=== PATIENT | female | born 1990 | race American Indian/Alaskan Native ===

== ENCOUNTER 2020-09-16 01:08 | Emergency (ER) | payer SELFPAY ==
[~2020-09-16] VITALS: Ht 157.5 cm; Wt 77.1 kg
[2020-09-16] MEDS ORDERED: IBUP600 PO (04:10)
[2020-09-16] MEDS ORDERED: Roxicodone5 MG PO (04:10)
== END 2020-09-16 04:39 | disposition home or self-care (01) ==
LOC: ER 01:08
DX: S82.892A Other fracture of left lower leg, initial encounter for closed fracture (principal); F17.210 Nicotine dependence, cigarettes, uncomplicated; X50.1XXA Overexertion from prolonged static or awkward postures, initial encounter
CPT/HCPCS: 29515; 73502; 73610; 99283-25; A9270

== ENCOUNTER 2020-12-24 13:18 | Day surgery (SDC) | payer OTHER ==
[~2020-12-24] VITALS: Ht 154.9 cm; Wt 84.5 kg
[~2020-12-24 13:18] MED LIST: IBUP600 PO; Roxicodone5 MG PO
== END 2020-12-24 17:10 | disposition home or self-care (01) ==
LOC: ORSCSDS 13:18
PROVIDERS: Podiatrist Foot & Ankle Surgery
PROC: 0QSH04Z Reposition Left Tibia with Internal Fixation Device, Open Approach (ICD-10-PCS; principal; 2020-12-24 14:45)
DX: S82.52XA Displaced fracture of medial malleolus of left tibia, initial encounter for closed fracture (principal); E66.9 Obesity, unspecified; Z68.35 Body mass index [BMI] 35.0-35.9, adult; F17.210 Nicotine dependence, cigarettes, uncomplicated
CPT/HCPCS: A9270; C1713; C1769; J0171; J0690; J2250; J2704; J3010; J7120

== ENCOUNTER 2022-08-25 18:30 | Emergency (ER) | payer OTHER ==
[~2022-08-25] VITALS: Ht 157.5 cm; Wt 83.9 kg
[2022-08-25 19:38] LABS: Source, Urine Clean Catch
[2022-08-25 20:14] LABS: Appearance, Urine Cloudy (Clear); Bilirubin, Urine Neg (Neg); Blood, Urine 4+ (Neg); Color, Urine Yellow (P-Yellow); Glucose Qualitative, Urine 1+ (Neg); Ketones, Urine 1+ (Neg); Leukocyte Esterase, Urine 3+ (Neg); Nitrite, Urine Pos (Neg); Protein, Urine 3+ (Neg); Urobilinogen, Urine NORM (Normal)
[2022-08-25 20:59] LABS: BASOPHILS ABSOLUTE AUTO 0.03 K/mm3 (0.00-0.23); BASOPHILS PERCENT AUTO 0 % (0-2); EOSINOPHILS PERCENT AUTO 0 % (0-6); Hematocrit 37.6 % (33.0-51.0); Hemoglobin 13.1 g/dL (11.5-16.0); IMMATURE GRAN ABSOLUTE AUTO 0.07 K/mm3 (0.00-0.10); IMMATURE GRAN PERCENT AUTO 0 % (0-1); LYMPHOCYTES ABSOLUTE AUTO 1.33 K/mm3 (0.84-5.20); LYMPHOCYTES PERCENT AUTO 7 % (21-46); MONOCYTES ABSOLUTE AUTO 1.71 K/mm3 (0.16-1.47); MONOCYTES PERCENT AUTO 8 % (4-13); Mean Corpuscular HGB 30.7 pg (26.0-34.0); Mean Corpuscular HGB Conc 34.8 g/dL (31.5-36.5); Mean Corpuscular Volume 88 fL (80-100); Mean Platelet Volume 9.8 fL (9.1-12.4); NEUTROPHILS ABSOLUTE AUTO 17.37 K/mm3 (1.96-9.15); NEUTROPHILS PERCENT AUTO 85 % (41-73); Platelet Count 234 K/mm3 (150-400); RDW Coefficient Variation 12.9 % (11.7-14.2); RDW Standard Deviation 41.7 fL (35.1-46.3); Red Blood Cell Count 4.27 M/mm3 (3.80-5.20); White Blood Cell Count 20.51 K/mm3 (4.00-11.30)
[2022-08-25 20:59] LABS: Bacteria Many /hpf; Squamous Epithelial Cells Mod /hpf (Few); White Blood Cells, Urine 50-100 /hpf (0-5)
[2022-08-25 21:15] LABS: Albumin/Globulin Ratio 0.7 (0.8-1.8); Bilirubin, Total 0.8 mg/dL (0.1-1.0); Bun/Creatinine Ratio 11.5 (12.0-20.0); Calcium, Blood 8.1 mg/dL (8.5-10.1); Creatinine, Blood 0.61 mg/dL (0.40-1.00); Globulin, Blood 4.1 g/dL (2.2-4.0); Total Protein, Blood 7.1 g/dL (6.4-8.2)
[2022-08-25 22:33] VITALS: BP 129/62
[2022-08-25] MEDS ORDERED: ONDA4ODT MM ×2 (22:59)
[2022-08-25] MEDS ORDERED: CEFP200 PO ×2 (22:59)
== END 2022-08-25 23:10 | disposition home or self-care (01) ==
LOC: ER 18:30
PROVIDERS: Student in an Organized Health Care Education/Training Program
DX: N12 Tubulo-interstitial nephritis, not specified as acute or chronic (principal); D72.829 Elevated white blood cell count, unspecified; F17.210 Nicotine dependence, cigarettes, uncomplicated
CPT/HCPCS: 80053; 81001; 83605; 83690; 85025; 87077; 87086; 87186; 96361; 96365; 96375; 99284-25; A9270; J0696; J1885; J7030

== ENCOUNTER 2022-08-29 12:48 | Inpatient (IN) | payer OTHER ==
[~2022-08-29 12:48] MED LIST changes: +CEFP200 PO; +ONDA4ODT MM
[2022-08-29 13:20] LABS: BASOPHILS ABSOLUTE AUTO 0.05 K/mm3 (0.00-0.23); BASOPHILS PERCENT AUTO 1 % (0-2); EOSINOPHILS ABSOLUTE AUTO 0.16 K/mm3 (0.00-0.68); EOSINOPHILS PERCENT AUTO 2 % (0-6); Hematocrit 37.5 % (33.0-51.0); IMMATURE GRAN ABSOLUTE AUTO 0.06 K/mm3 (0.00-0.10); IMMATURE GRAN PERCENT AUTO 1 % (0-1); LYMPHOCYTES ABSOLUTE AUTO 2.36 K/mm3 (0.84-5.20); LYMPHOCYTES PERCENT AUTO 26 % (21-46); MONOCYTES ABSOLUTE AUTO 0.87 K/mm3 (0.16-1.47); MONOCYTES PERCENT AUTO 10 % (4-13); Mean Corpuscular HGB 30.4 pg (26.0-34.0); Mean Corpuscular HGB Conc 34.7 g/dL (31.5-36.5); Mean Corpuscular Volume 88 fL (80-100); Mean Platelet Volume 9.8 fL (9.1-12.4); NEUTROPHILS ABSOLUTE AUTO 5.63 K/mm3 (1.96-9.15); NEUTROPHILS PERCENT AUTO 62 % (41-73); Platelet Count 305 K/mm3 (150-400); RDW Coefficient Variation 13.4 % (11.7-14.2); Red Blood Cell Count 4.27 M/mm3 (3.80-5.20); White Blood Cell Count 9.13 K/mm3 (4.00-11.30)
[2022-08-29 13:36] LABS: Albumin, Blood 2.8 g/dL (3.4-5.0); Albumin/Globulin Ratio 0.6 (0.8-1.8); Bilirubin, Total 0.2 mg/dL (0.1-1.0); Bun/Creatinine Ratio 15.3 (12.0-20.0); Calcium, Blood 8.6 mg/dL (8.5-10.1); Creatinine, Blood 0.59 mg/dL (0.40-1.00); Globulin, Blood 4.7 g/dL (2.2-4.0); Potassium, Blood 3.3 mmol/L (3.5-5.5); Total Protein, Blood 7.5 g/dL (6.4-8.2)
--- NOTE | 2022-08-29 17:25 | NUR ---
PT CHART REVIEWED FOR ADMISSION
[2022-08-29 17:58] VITALS: BP 128/85
--- NOTE | 2022-08-29 18:45 | NUR ---
ADMISSION AND SUMMARY PATIENT ADMITTED WITH PYLONEPHRITIS. PATIENT ALERT AND INDEPENDENT IN THE ROOM. PATIENT STATES SHE HAS FLANK PAIN RADIATING TO ABDOMIN. PATIENT STATES THAT IT HAS IMPROVED SINCE ED BUT CONTINUES TO BE ABOUT 7/10. PATIENT EDUCATED ON OXYGEN SAFETY, CUMBUSTABLES AND NO SMOKING POLICY. PATIENT STATES SHE HAD ALREADY SURENDERED HER VAPE PEN TO ED.
[2022-08-30 04:28] VITALS: BP 100/41
[2022-08-30 04:29] VITALS: BP 100/41
[2022-08-30 05:24] LABS: BASOPHILS ABSOLUTE AUTO 0.05 K/mm3 (0.00-0.23); BASOPHILS PERCENT AUTO 1 % (0-2); EOSINOPHILS ABSOLUTE AUTO 0.21 K/mm3 (0.00-0.68); EOSINOPHILS PERCENT AUTO 2 % (0-6); Hematocrit 36.8 % (33.0-51.0); Hemoglobin 12.5 g/dL (11.5-16.0); Mean Corpuscular Volume 89 fL (80-100); Mean Platelet Volume 9.7 fL (9.1-12.4); Platelet Count 312 K/mm3 (150-400); RDW Coefficient Variation 13.4 % (11.7-14.2); RDW Standard Deviation 43.8 fL (35.1-46.3); Red Blood Cell Count 4.16 M/mm3 (3.80-5.20); White Blood Cell Count 10.31 K/mm3 (4.00-11.30)
[2022-08-30 05:33] LABS: IMMATURE GRAN ABSOLUTE AUTO 0.05 K/mm3 (0.00-0.10); IMMATURE GRAN PERCENT AUTO 1 % (0-1); LYMPHOCYTES ABSOLUTE AUTO 2.84 K/mm3 (0.84-5.20); LYMPHOCYTES PERCENT AUTO 28 % (21-46); MONOCYTES ABSOLUTE AUTO 0.98 K/mm3 (0.16-1.47); MONOCYTES PERCENT AUTO 10 % (4-13); NEUTROPHILS ABSOLUTE AUTO 6.18 K/mm3 (1.96-9.15); NEUTROPHILS PERCENT AUTO 60 % (41-73)
[2022-08-30 07:36] VITALS: BP 117/53
--- NOTE | 2022-08-30 08:12 | NUR ---
SHIFT SUMMARY PATIENT A/OX4, BRIGHT AFFECT. DENIES PAIN NOR DISCOMFORT AT TIME OF ASSESMENT. RECEIVED PRN ANALGESIC MEDICATION X1 THIS SHIFT FOR FLANK PAIN AT 04:35, TOLERATED WELL. INDEPENDANT IN ROOM. PIV TO LEFT AC, PATENT, FLUSHES WELL. EDUCATED ON FIRE SAFETY AND RISK OF INJURY R/T OXYGEN USE, VERBALIZED UNDERSTANDING, DENIES SMOKING. RESTING IN BED AT END OF SHIFT IN NO ACUTE DISTRESS. BED IN LOW, CALL WITHIN REACH.
[2022-08-30 10:34] LABS: Albumin, Blood 2.4 g/dL (3.4-5.0); Albumin/Globulin Ratio 0.6 (0.8-1.8); Bilirubin, Total 0.2 mg/dL (0.1-1.0); Bun/Creatinine Ratio 18.2 (12.0-20.0); Calcium, Blood 8.4 mg/dL (8.5-10.1); Creatinine, Blood 0.55 mg/dL (0.40-1.00); Globulin, Blood 4.2 g/dL (2.2-4.0); Magnesium, Blood 2.2 mg/dL (1.6-2.4); Potassium, Blood 3.6 mmol/L (3.5-5.5); Total Protein, Blood 6.6 g/dL (6.4-8.2)
[2022-08-30 16:02] VITALS: BP 124/61
--- NOTE | 2022-08-30 18:01 | NUR ---
SHIFT SUMMARY PATIENT UP INDEPENDENT IN THE ROOM. PATIENT CONTINUES TO HAVE FLANK PAIN. MEDICATED WITH PAIN MEDS PER MAR. PATIENT COOPERATIVE WITH CARE. PLAN TO POSSIBLY DISCHARGE IN THE AM IF PAIN CONTROLLED AND NO FURTHER ISSUES.
[2022-08-30 20:42] VITALS: BP 130/66
[2022-08-31 04:30] VITALS: BP 105/58
--- NOTE | 2022-08-31 04:45 | NUR ---
SHIFT SUMMARY PATIENT A/Ox4, BRIGHT AFFECT. RECEIVED PRN TORADOL X1 AT HS FOR C/O FLANK PAIN, TOLERATED WELL WITHOUT FURTHER COPLAINTS OF PAIN. PATIENT REPORTS SLEEPING WELL, ENDORSES FEELING BETTER. INDEPENDANT IN ROOM. EDUCATED ON FIRE SAFETY AND RISK OF INJURT R/T OXYGEN USE, VERBALIZED UNDERSTANDING, DENIES SMOKING, DENIES HAVING ANY SOURCES OF IGNITION. NO ACUTE CHANGES OVERNIGHT. BED IN LOW POSITION, CALL LIGHT WITHIN REACH.
[2022-08-31 07:42] LABS: Hematocrit 37.4 % (33.0-51.0); Hemoglobin 12.5 g/dL (11.5-16.0); Mean Corpuscular HGB Conc 33.4 g/dL (31.5-36.5); Mean Corpuscular Volume 90 fL (80-100); Mean Platelet Volume 9.4 fL (9.1-12.4); Platelet Count 342 K/mm3 (150-400); RDW Coefficient Variation 13.4 % (11.7-14.2); RDW Standard Deviation 44.8 fL (35.1-46.3); Red Blood Cell Count 4.16 M/mm3 (3.80-5.20); White Blood Cell Count 9.09 K/mm3 (4.00-11.30)
[2022-08-31 07:55] VITALS: BP 112/55
[2022-08-31 08:13] LABS: Calcium, Blood 8.5 mg/dL (8.5-10.1); Creatinine, Blood 0.57 mg/dL (0.40-1.00); Potassium, Blood 4.1 mmol/L (3.5-5.5)
[2022-08-31 08:15] LABS: BASOPHILS PERCENT MAN 0 % (0-2); EOSINOPHILS ABSOLUTE MAN 0.45 K/mm3 (0.00-0.68); EOSINOPHILS PERCENT MAN 5 % (0-6); LYMPHOCYTES ABSOLUTE MAN 2.09 K/mm3 (0.84-5.20); LYMPHOCYTES PERCENT MAN 23 % (21-46); MONOCYTES ABSOLUTE MAN 0.72 K/mm3 (0.16-1.47); MONOCYTES PERCENT MAN 8 % (4-13); NEUTROPHILS ABSOLUTE MAN 5.81 K/mm3 (1.96-9.15); SEG NEUTROPHILS PERCENT MAN 64 % (41-73); TOTAL CELLS COUNTED 100
[2022-08-31] MEDS ORDERED: LACT PO ×2 (15:01)
[2022-08-31] MEDS ORDERED: LEVO750 PO ×2 (15:01)
--- NOTE | 2022-08-31 18:33 | NUR ---
SHIFT SUMMARY AND DISCHARGE PATIENT INDEPENDENT IN THE ROOM. PATIENT CONTINUES TO HAVE FLANK PAIN RADIATING TO ABD BUT STATES THAT IT IS IMPROVING. PATIENT HAD CT OF ABDOMIN AND PELVIS TODAY. PATIENT DISCHARGED HOME. DISCHARGE INSTRUCTIONS REVIEWED WITH PATIENT. IV DC'D. CATHETER INTACT. ROOM CHECK DONE PRIOR TO DISCHARGE AND BELONGINGS RETURNED TO PATIENT. PATIENT REQUESTED TO AMBULATE OUT. PATIENT ESCORTED OFF THE UNIT WITH NURSE.
== END 2022-08-31 15:50 | disposition home or self-care (01) | DRG 690 ==
LOC: ER 12:48 → MEDS 17:01
PROVIDERS: Family Medicine; Physician Assistant; ADMIT Student in an Organized Health Care Education/Training Program
DX: N12 Tubulo-interstitial nephritis, not specified as acute or chronic (principal); N15.1 Renal and perinephric abscess; B96.20 Unspecified Escherichia coli [E. coli] as the cause of diseases classified elsewhere; F17.210 Nicotine dependence, cigarettes, uncomplicated; Z79.899 Other long term (current) drug therapy
CPT/HCPCS: 36415; 74177; 80048; 80053; 83605; 83735; 84703; 85025; 96365-59; 96375; 99285-25; A9270; J0696; J1650; J1885; J2270; J7030; Q9967